=== PATIENT | male | born 1955 | race Caucasian/White ===

== ENCOUNTER 2024-11-29 08:26 | Inpatient (IN) ==
--- NOTE | 2024-11-27 09:46 | Anesthesiology Consultation ---
Date of Service November 27, 2024 Assessment & Plan (1) Encounter for pre-operative examination: - Check BSG DOS - Infectious disease screening: Per assessment on 11/23/24- No known recent infectious disease contacts or current infectious disease symptoms. - *Inspire device*: OR aware. Patient advised by PAT RN to bring remote DOS. Chart Review Chart Review: Acceptable Risk for Surgery and Patient NOT seen in Pre Admission Testing History Surgery Operation Date: 11/29/24 09:35 Proposed Procedures p TURP (Transurethral Resection Prostate) - Shade Perry MD Height/Weight Height: 6 ft 2 in Weight: 83.915 kg Allergies Allergy/AdvReac Type Severity Reaction Status Date / Time Penicillins Allergy Mild Rash Verified 11/23/24 12:43 Medications Home Medications Medication Instructions Recorded Confirmed Last Taken aspirin 81 mg tablet 81 mg PO DAILY 08/28/24 11/23/24 Unknown duloxetine 30 mg capsule,delayed 90 mg PO QAM 08/28/24 11/23/24 Unknown release sprinkle empagliflozin 25 mg tablet 25 mg PO QAM 08/28/24 11/23/24 Unknown finasteride 5 mg tablet 5 mg PO HS 08/28/24 11/23/24 Unknown insulin glargine 100 unit/mL 20 unit subcut BID 08/28/24 11/23/24 Unknown subcutaneous solution metformin 1,000 mg tablet 1,000 mg PO BID 08/28/24 11/23/24 Unknown modafinil 100 mg tablet 100 mg PO QAM 08/28/24 11/23/24 Unknown omeprazole 20 mg capsule,delayed 20 mg PO QAM 08/28/24 11/23/24 Unknown release rosuvastatin 5 mg tablet 5 mg PO HS 08/28/24 11/23/24 Unknown tamsulosin 0.4 mg capsule 0.4 mg PO BID 08/28/24 11/23/24 Unknown testosterone cypionate 200 mg/mL 80 mg subcut Q7D 08/28/24 11/23/24 Unknown intramuscular oil tirzepatide 10 mg/0.5 mL 10 mg subcut WK 08/28/24 11/23/24 Unknown subcutaneous pen injector (Lisa) trazodone 50 mg tablet 100 mg PO HS 08/28/24 11/23/24 Unknown lisinopril 20 mg tablet 10 mg PO QAM 10/25/24 11/23/24 Unknown sulfamethoxazole 800 1 tab PO BID #14 tabs 11/22/24 11/23/24 Unknown mg-trimethoprim 160 mg tablet (Bactrim DS) alpha lipoic acid 600 mg capsule 600 mg PO DAILY 11/23/24 11/23/24 Unknown calcium carbonate-vitamin D3 500 1 cap PO DAILY 11/23/24 11/23/24 Unknown mg (1,250 mg)-50 unit capsule cholecalciferol (vitamin D3) 125 125 mcg PO WK 11/23/24 11/23/24 Unknown mcg (5,000 unit) tablet (Vitamin D3) coenzyme Q10 100 mg capsule 200 mg PO DAILY 11/23/24 11/23/24 Unknown (CoQ-10) magnesium citrate 100 mg tablet 200 mg PO DAILY 11/23/24 11/23/24 Unknown multivitamin 1 tab PO DAILY 11/23/24 11/23/24 Unknown omega 6-pxs-tpv-fish oil 1,200 mg 1 cap PO DAILY 11/23/24 11/23/24 Unknown (144 mg-216 mg) capsule (Fish Oil) psyllium husk 0.4 gram capsule 0.4 g PO DAILY 11/23/24 11/23/24 Unknown vitamin B12 500 mcg-folic acid 400 1 tab PO DAILY 11/23/24 11/23/24 Unknown mcg tablet vitamin B6 1.7 mg-cyanocobalamin 1 tab PO DAILY 11/23/24 11/23/24 Unknown 2.4 mcg-herbs tablet Past Medical History Medical History Acute UTI Started Bactrim 11/22/24 Barretts esophagus BPH w urinary obs/LUTS Chronic fatigue syndrome Diabetes mellitus Diverticulosis Fibromyalgia GERD (gastroesophageal reflux disease) Hx of sleep apnea Inspire placed 2022 Incomplete bladder emptying Kidney cysts Small lymphocytic lymphoma Past Surgical History Surgical History History of esophagogastroduodenoscopy (EGD) History of surgery (2022) Inspire Implant Advised by RENETTA HAMILTON to bring remote DOS Hx of bilateral cataract extraction right x 5 left x 2 most recent- 2019 Hx of colonoscopy Hx of decompression of ulnar nerve (2007) Left Hx of foot surgery Right 4th bone spur (1999) Left foot bone removal/tendon repair (2019) Hx of removal of cyst (2004) Back Social History Smoking Status: Never smoker Do You Dip or Chew Tobacco: No Hx Alcohol Use: Yes alcohol intake frequency: a few times a month Hx Substance Use: No substance use type: does not use Lab Results Anesthesia Preop Results Results Anesthesia Widget: WBC 9.80 K/ul (4.8-10.8) 11/22/24 Hgb 15.2 g/dl (14.0-18.0) 11/22/24 Hct 45.9 % (42.0-52.0) 11/22/24 Plt 201 K/uL (130-400) 11/22/24 Na 143 mmol/L (136-145) 11/22/24 K 4.0 mmol/L (3.5-5.1) 11/22/24 Cl 105 mmol/L (98-107) 11/22/24 CO2 30 mmol/L (21-32) 11/22/24 BUN 14 mg/dl (6-23) 11/22/24 Creat 0.93 mg/dl (0.6-1.4) 11/22/24 Glucose Level 73 mg/dl (70-99(Fasting)) 11/22/24 Testing Laboratory Results UA (11/19/24): + blood/leuk est, negative nitrite Urine culture (11/27/24): pending Electrocardiogram Date: 11/27/24 NSR at 85bpm. "Normal ECG" Chest X-Ray Date: 12/23/24 Findings: The lungs are clear. The cardiomediastinal silhouette is within normal limits. No pleural effusion or pneumothorax. The heart size appears normal. No bony or soft tissue abnormality. Diffuse anterior flowing osteo phytes of the thoracic spine. Right chest wall battery pack generator with stimulator device extending into the right side of the neck. Impression: Normal chest x-ray
[~2024-11-29 08:26] MED LIST: DEXAMETHASONE SOD INJ 4 MG/ML VIAL ONE; LIDOCAINE 2% 2 ML VIAL/AMP(20MG/ML) INFIL ONE; MIDAZOLAM HCL 1 MG/ML 2ML VIAL ONE; ONDANSETRON INJ 2 MG/ML 2 ML VIAL ONE; PROPOFOL IV EMULSION 10 MG/ML 20 ML VIAL IV ONE
[2024-11-29] MEDS: GENTAMICIN SULFATE 420 MG in DEXTROSE 5% 100 ML IV SCH (09:08)
[2024-11-29] MEDS: LR 15ML/HR IV SCH (09:08)
[2024-11-29] MEDS ORDERED: NALOXONE HCL 0.4 MG/1 ML VIAL/CARP IV PRN (09:10)
[2024-11-29] MEDS ORDERED: PROMETHAZINE HCL 6.25 MG in SODIUM CHLORIDE 0.9% 50 ML IV PRN (09:10)
[2024-11-29] MEDS ORDERED: FLUMAZENIL 0.1 MG/1 ML 10 ML VIAL IV PRN (09:10)
[2024-11-29] MEDS ORDERED: ATROPINE SULFATE 0.1 MG/ML 10ML SYR IV PRN (09:10)
[2024-11-29] MEDS ORDERED: ONDANSETRON INJ 2 MG/ML 2 ML VIAL IV PRN ×2 (09:10→11:59)
--- NOTE | 2024-11-29 09:14 | History & Physical Bridge Note ---
Date of Service November 29, 2024 History & Physical Bridge Note I have examined the patient, reviewed the History & Physical and in the interval since the performance of the History & Physical I have noted the following changes of clinical significance: no changes noted
[2024-11-29] MEDS ORDERED: ACETAMINOPHEN 325 MG TAB PO PRN ×2 (10:47→11:59)
[2024-11-29] MEDS ORDERED: PHENAZOPYRIDINE HCL 200 MG TAB PO PRN (10:47)
--- NOTE | 2024-11-29 10:49 | Operative Report ---
PG Post Operative Report Pre & Post Diagnosis Operation Date: 11/29/24 09:35 Pre-Op Diagnosis: Benign Prostatic Hyperplasia, Incomplete Bladder Emptying Post-Op Diagnosis: Benign Prostatic Hyperplasia, Incomplete Bladder Emptying I identified the patient and participated in the time-out.: Yes Procedure Operation Date: 11/29/24 09:35 Actual Procedures p Transurethral Resection of Prostate - Shade Perry MD Surgeon Shade Perry MD Nursing Professor None Estimated Blood Loss 10 Findings Consistent with Post-Op Diagnosis Specimens Prostate chips Drains 22 [place] three-way Neff catheter per urethra, 20 cc in balloon, CBI running Anesthesia Type General Complications none Disposition Accompanied Patient To Recovery: Yes Indications This is a 69-year-old male followed by urology for incomplete bladder emptying. He presents to the OR for transurethral resection of the prostate. Description of Procedure The patient was identified in the holding area and informed consent was confirmed. He was taken to the operating room where general anesthesia was initiated. He was placed in the dorsal lithotomy position with all pressure points appropriately padded. He was prepped and draped in the usual sterile fashion and a preoperative timeout was performed. A well-lubricated resectoscope was inserted per urethra and panendoscopy was performed. Pendulous urethra was normal. His prostate was enlarged with mild intravesical protrusion. The prostate was systematically resected, starting with the median lobe, taking resection down until the capsular fibers could be identified. The proximal resection was up to the bladder neck, taking care not to injure the ureteral orifices. The distal resection extended to the verumontanum, taking care to avoid the sphincter. The lateral lobes were then resected down to the level of the capsule. Meticulous hemostasis was obtained using the button electrode. The prostate chips were evacuated from the bladder and sent for pathologic analysis. A final inspection demonstrated no injury to the ureteral orifices or the sphincter, no remaining prostate chips, and good hemostasis at low pressure. A 22 Fr 3-way neff catheter was placed. The balloon was inflated with 20 mL of normal saline and the catheter was attached to gravity drainage with continuous irrigation running. The patient was then awakened from anesthesia and was brought to the PACU in stable condition. I attest to the content of the Intraoperative Record and any orders documented therein. Any exceptions are noted below.
--- NOTE | 2024-11-29 11:25 | Anesthesiology Progress Note ---
Date of Service November 29, 2024 Anesthesia Post Procedure Vital Signs Vital Signs: Temp Pulse Resp BP Pulse Ox O2 Del Method O2 Flow Rate 11/29/24 11:15 85 12 147/82 H 94 Room Air 11/29/24 11:05 85 14 143/81 H 96 Oxymask 3 11/29/24 10:55 87 16 146/79 H 97 Oxymask 4 11/29/24 10:45 36.3 C L 103 H 14 147/84 H 94 Oxymask 6 11/29/24 08:20 36.5 C 83 20 145/77 H 99 Room Air Transfer of Care Handoff Completed per policy Notes Mental Status: alert / awake / arousable Patient Amnestic to Procedure: Yes Nausea / Vomiting: adequately controlled Pain: adequately controlled Airway Patency, RR, SpO2: stable & adequate BP & HR: stable & adequate Hydration State: stable & adequate Anesthetic Complications: no major complications apparent
[2024-11-29] MEDS ORDERED: PHARMACY GLYCEMIC MGMT CONSULT PRN (13:18)
[2024-11-29 14:23] VITALS: RESP 18
[2024-11-29] MEDS ORDERED: DEXTROSE 50% 50 ML SYRINGE IV PRN (14:30)
[2024-11-29] MEDS ORDERED: GLUCAGON FOR INJ 1 MG VIAL SQ PRN (14:30)
[2024-11-29] MEDS ORDERED: CARBOHYDRATES FOR HYPOGLYCEMIA PO PRN (14:30)
[2024-11-29] MEDS ORDERED: GLUCOSE 40% GEL 15 GM TUBE PO PRN (14:30)
[2024-11-29] MEDS ORDERED: GLUCOSE 10 TAB/TUBE PO PRN (14:30)
--- NOTE | 2024-11-29 15:16 | Pharmacy Report ---
Pharmacy Glycemic Short Note 2 - Date of Service November 29, 2024 - Glycemic Short BSG Results (Last 24 hours): 11/29/24 11/29/24 11/29/24 08:57 11:13 13:50 POC Glucose 90 75 121 H OUTPATIENT ANTIDIABETIC REGIMEN: * Lantus 30 units SQ q HS * metformin ER 1000mg PO BID * empagliflozin 25mg PO q AM * tirzepatide 10mg SQ weekly HbA1c: pending.. ASSESSMENT: * Hector is a 69 year old male who was admitted for a transurethral resection of the prostate (POD #0). Pharmacy was consulted for glycemic management postop. * BSG preop was 90mg/dL and postop was 75mg/dL. He did receive 4mg iv dexamethasone x 1 preop. Patient reportedly took his full dose of Lantus last evening. * A weight based bolus insulin regimen with a stress of 2 was started and a Lantus scale (0, 15, or 30 units depending on BSG) was added for HS. PLAN FOR INPATIENT GLYCEMIC CONTROL: * Hold outpatient diabetes medications * Basal insulin * Lantus scale at HS (0, 15, or 30 units depending on BSG) * Bolus insulin * NovoLog per scale ACHS or Q6hrs while NPO * Goal Range: Low 110 mg/dL - High 150 mg/dL * Correction Factor: 30 mg/dL/unit * Nutritional / Prandial insulin per carb ratio of 1 unit per 10 grams CHO consumed
[2024-11-29] MEDS: INSULIN ASPART PER UNIT CHARGE SC SCH (17:22)
[2024-11-29] MEDS: LANTUS PER UNIT CHARGE SC SCH (20:29)
[2024-11-29] MEDS: FINASTERIDE 5 MG TAB PO SCH (20:30)
[2024-11-29] MEDS: ROSUVASTATIN CALCIUM 5 MG TAB PO SCH (20:30)
[2024-11-29] MEDS: TAMSULOSIN HCL 0.4 MG CAP PO SCH (20:30)
[2024-11-29] MEDS: SULFAMETHOXAZOLE/TRIMETHOPRIM DS 800/160MG TAB PO SCH (20:30)
[2024-11-30 03:53] VITALS: O2SAT 97
[2024-11-30 06:56] VITALS: BP 136/53; TEMP 98.2
--- NOTE | 2024-11-30 07:51 | Urology Progress Note ---
Date of Service November 30, 2024 Assessment & Plan (1) BPH loc w urin obs/LUTS: Plan: Recovering appropriately s/p TURP on 12/20. Urine is clear, therefore CBI was clamped. If urine remains clear for the next 30-60 minutes, he can proceed to voiding trial. Anticipate discharge home today once he is able to void. Admission and Anticipated Discharge Date Admission Date: November 29, 2024 Subjective No issues overnight, did not require hand irrigation Urine has cleared nicely with CBI Tolerating a diet with no nausea or vomiting Labs pending this morning Physical Exam Physical Exam: Resting in bed, NAD Whitaker catheter in place draining clear urine on slow drip CBI Results & Data Vital Signs (Past 12 Hours) Vital Signs Temp Pulse Resp BP Pulse Ox O2 Del Method 11/30/24 06:56 36.8 C 75 18 136/53 L 97 Room Air 11/30/24 03:00 36.7 C 79 18 135/67 97 Room Air 11/29/24 22:35 37.1 C 82 18 110/65 96 Room Air PG Care Time/CCT Total # of Minutes Spent Total Time Spent with Patient: Total time spent is greater than 50% in coordination of care (as documented) at patient's floor/unit and/or counseling patient: Coding Level of Care Code None Diagnoses BPH loc w urin obs/LUTS N40.1
[2024-11-30 08:55] LABS: Hematocrit (blood only) 38.2 % (42.0-52.0); Hemoglobin 13.3 g/dl (14.0-18.0); Mean Corpuscular Volume 84.5 fL (80.0-100.0); Red Blood Count 4.52 M/uL (4.70-6.10); White Blood Count 12.91 K/ul (4.8-10.8)
[2024-11-30 08:56] LABS: Mean Corpuscular Hemoglobin 29.4 pg (25.0-34.0); Platelet Count 189 K/uL (130-400); RDW Standard Deviation 40.7 fL (36.4-46.3)
[2024-11-30 09:15] LABS: Anion Gap 6.0 (3-11); Blood Urea Nitrogen 16.0 mg/dl (6-23); Calcium 8.9 mg/dl (8.6-10.3); Carbon Dioxide 26.0 mmol/L (21-32); Chloride 102.0 mmol/L (98-107); Creatinine Clr Calc Pharmacy 80.3 ml/min; Glucose 145.0 mg/dl (70-99(Fasting)); Potassium 3.8 mmol/L (3.5-5.1); Sodium 134.0 mmol/L (136-145)
[2024-11-30 09:40] LABS: Immature Granulocytes # (auto) 0.02 K/uL (0.01-0.20); Immature Granulocytes % (auto) 0.2 %
[2024-11-30 09:42] LABS: Hemoglobin A1C 5.3 % (4.5-5.6)
--- NOTE | 2024-11-30 13:29 | Discharge Summary ---
Date of Service November 30, 2024 Admission HPI Per Admitting Provider This is a 69-year-old male followed by urology for BPH/incomplete bladder emptying. He presented to the OR on 11/2024 for transurethral resection of the prostate. He was admitted postoperatively for continuous bladder irrigation. Admission Exam Per Admitting Provider Constitutional well developed and well nourished; no acute distress Respiratory normal respiratory effort and able to speak in complete sentences Musculoskeletal Extremities: extremities normal to inspection Psychiatric Orientation: alert and oriented x 3 Principal Diagnosis BPH/incomplete bladder emptying Discharge Exam Well-appearing, NAD Catheter removed, voiding rust colored urine Discharge Data Allergies Allergy/AdvReac Type Severity Reaction Status Date / Time Penicillins Allergy Mild Rash Verified 11/29/24 08:28 monahan pepper AdvReac Severe Gastrointestinal Verified 11/30/24 10:56 Upset Procedures Performed Operation Date: 11/29/24 09:35 Actual Procedures p Transurethral Resection of Prostate(Not Applicable) - Shade Perry MD Hospital Course (1) BPH loc w urin obs/LUTS: Transurethral resection of the prostate was performed on 11/29/24. On 11/30, urine was clear on slow drip CBI. Irrigation was stopped and urine remains fairly clear. Catheter was removed and he was able to void. He was discharged home in good condition. (2) Incomplete bladder emptying: Total Time Total Time Spent Total Time Spent (In Minutes): 15 Discharge Plan Discharge Items Patient Disposition: Home - Self-Care Reason For Visit: Benign Prostatic Hyperplasia, Incomplete Bladder Discharge Diagnosis: Incomplete bladder emptying Activity: Per Instructions section Non-emergency contact: Urologist Call non-emergency contact if: you have any medication questions, your symptoms worsen, your pain is not controlled, your pain is worsening, your pain is unusual for you, you have a fever and your temperature is above 101 Follow-up/Referrals: Carl Austin MD [Primary Care Provider] - Diet: Carb Consistent or DM2 Addtl Attending Provider Instructions: The surgery you had was TURP (Trans-urethral resection of the prostate) Please take all medications as prescribed and keep all follow-ups as scheduled. Please call our office at [phone] with any questions, concerns or need to reschedule appointments for any reason. We are happy to assist you. Medications: -Please resume your normal medications as previously prescribed. -Take a stool softener such as colace or Miralax to keep your stool soft. The goal is one soft bowel movement daily. -For pain, it is ok to take tylenol. You can also try pyridium (also known as AZO). This can be gotten [id number]. It turns your urine a bright orange color. -You have been prescribed an antibiotic (Bactrim). Please take this twice daily for the next 5 days. Activity: -Avoid straining or bearing down for the next 1-2 weeks. This can cause or increase bleeding. Avoiding straining to have bowel movements. -If you notice blood in your urine, try to remain well-hydrated to keep the urine dilute. -For the next 2 weeks, avoid activities that put pressure on your perineum (area behind the scrotum), such as riding a bike. What to expect after your procedure: -If a catheter was left in place, we will have you come to the office in the next couple days to remove it. -You may notice some blood in your urine. As long as your catheter is draining, this is ok. -You may have increased urinary frequency and urgency; this should improve with time. -You may notice some urinary leaking, especially with coughing/sneezing/bearing down. This should improve with time. When to call [facility] at [phone]: Fever of 101F or higher Heavy bleeding Pain that is not controlled with medicine Uncontrolled vomiting Problems urinating or inability to urinate Our office will call to schedule an appointment for catheter removal. Pending Studies at Discharge: No Stand-Alone Forms: My [facility] Medications and DC Order Prescriptions: New sulfamethoxazole-trimethoprim [Bactrim DS] 800-160 mg tablet 1 tab PO BID 5 Days Qty: 10 0RF Continued sulfamethoxazole-trimethoprim [Bactrim DS] 800-160 mg tablet 1 tab PO BID Qty: 14 0RF Mounjaro 10 mg/0.5 mL pen injector 10 mg subcut WK Jardiance 25 mg tablet 25 mg PO QAM insulin glargine [Lantus U-100 Insulin] 100 unit/mL solution 30 unit subcut HS Rx Instructions: takes 30 units hs metformin 1,000 mg tablet 1,000 mg PO BID testosterone cypionate 200 mg/mL oil 80 mg subcut Q7D finasteride 5 mg tablet 5 mg PO HS duloxetine 30 mg capsule, delayed rel sprinkle 90 mg PO QAM trazodone 50 mg tablet 100 mg PO HS tamsulosin [Flomax] 0.4 mg capsule 0.4 mg PO BID rosuvastatin 5 mg tablet 5 mg PO HS modafinil [Provigil] 100 mg tablet 100 mg PO QAM aspirin 81 mg tablet 81 mg PO DAILY omeprazole 20 mg capsule,delayed release(DR/EC) 20 mg PO QAM lisinopril 20 mg tablet 10 mg PO QAM multivitamin Tablet 1 tab PO DAILY coenzyme Q10 [CoQ-10] 100 mg Capsule 200 mg PO DAILY cholecalciferol (vitamin D3) [Vitamin D3] 125 mcg (5,000 unit) Tablet 125 mcg PO WK omega 0-twc-xof-fish oil [Fish Oil] 1,200 (144-216) mg Capsule 1 cap PO DAILY vitamin T24-nblef acid 500-400 mcg Tablet 1 tab PO DAILY Rx Instructions: administer with a meal Calcium With Vitamin D3 500 mg(1,250mg) -50 unit Capsule 1 cap PO DAILY alpha lipoic acid 600 mg Capsule 600 mg PO DAILY magnesium citrate 100 mg Tablet 200 mg PO DAILY psyllium husk 0.4 gram Capsule 0.4 g PO DAILY vitamin R9-yaktpsppqlovbg-clwq 1.7 mg- 2.4 mcg Tablet 1 tab PO DAILY Discharge Orders: Discharge Order (Routine); Ordered 11/30/24 Ordered By: Shade Perry Admission Data Admit Date/Time: 11/29/24 11:59 Attending Provider: Shade Perry Admit Provider: Shade Perry Primary Care Provider: Carl Austin Coding Level of Care Code 02816 IN/OBS DISCH 30 MIN/LESS Diagnoses BPH loc w urin obs/LUTS N40.1 Incomplete bladder emptying R33.9 Time Spent (min) 15
[2024-11-30 13:30] VITALS: PULSE 83
== END 2024-11-30 14:43 | disposition home or self-care (01) | DRG 714 ==
LOC: ASU 08:26 → OBSVTOIN 11:59 → PACUINP 11:59 → INTOOBSV 11:59 → 3W 13:39